=== PATIENT | female | born 1995 | race African-American/Black ===

== ENCOUNTER 2019-10-23 22:28 | Observation (INO) ==
[2019-10-24] MEDS ORDERED: PROMETHAZINE INJ 25 MG in SODIUM CHLORIDE 0.9% 50 ML IV STA (00:16)
[2019-10-24] MEDS ORDERED: KETOROLAC 30 MG/1 ML VIAL IV STA (00:16)
[2019-10-24] MEDS ORDERED: PROMETHAZINE 25 MG/1 ML VIAL ONE (00:40)
[2019-10-24 00:44] LABS: Basophils % 0.5 % (0.0-0.8); Eosinophils # 0.1 10*3/uL (0.0-0.87); Eosinophils % 1.2 % (0.00-10.9); Hematocrit 39.6 VOL% (35.7-47.0); Hemoglobin 12.3 GM/DL (12.0-16.0); Immature Granulocytes % 0.6 %; Immature Granulocytes Absolute 0.05 #; Lymphocytes # 3.2 10*3/uL (1.4-4.0); Lymphocytes % 37.9 % (21.3-54.2); Mean Corpuscular HGB Conc 31.1 GM/DL (32-36); Mean Corpuscular Volume 93.4 FL (87-102); Mean Platelet Volume 11.8 FL (9.6-12.0); Monocytes % 10.9 % (1.7-12.7); Neutrophils % 48.9 % (38.7-73.9); Platelet Count 256 T/CUMM (130-400); Red Blood Count 4.24 MC/CUMM (3.8-5.5); Red Cell Distribution Width 12.3 % (9.3-17.3); White Blood Count 8.5 T/CUMM (4-12)
[2019-10-24] MEDS ORDERED: PROMETHAZINE 25 MG/1 ML VIAL IM STA (00:45)
[2019-10-24 01:32] LABS: Calcium 9.3 MG/DL (8.5-10.1); Osmolality,Calculated 272.8 MOS/KG (273-304)
[2019-10-24] MEDS ORDERED: PROMETHAZINE 25 MG/1 ML VIAL IM PRN (03:17)
[2019-10-24] MEDS ORDERED: ONDANSETRON 4 MG/2 ML VIAL IV PRN (03:17)
[2019-10-24] MEDS ORDERED: ACETAMINOPHEN 325 MG TABLET PO PRN (03:17)
[2019-10-24] MEDS ORDERED: HYDROmorphone 2 MG/1 ML VIAL IV PRN (03:45)
[2019-10-24] MEDS ORDERED: diphenhydrAMINE 50 MG/1 ML VIAL IV PRN (04:22)
[2019-10-24] MEDS: KETOROLAC 30 MG/1 ML VIAL IV PRN ×3 (08:23→21:09)
[2019-10-24] MEDS ORDERED: ALPRAZolam 0.5 MG TABLET PO PRN (15:19)
[2019-10-24] MEDS: acetaZOLAMIDE 250 MG TABLET PO SCH (17:21)
[2019-10-24] MEDS: TOPIRAMATE 100 MG TABLET PO SCH (21:05)
[2019-10-24] MEDS: tiZANidine 4 MG TABLET PO PRN (21:23)
[2019-10-25 05:24] LABS: Basophils % 0.5 % (0.0-0.8); Eosinophils # 0.2 10*3/uL (0.0-0.87); Eosinophils % 2.1 % (0.00-10.9); Hematocrit 38.9 VOL% (35.7-47.0); Hemoglobin 11.8 GM/DL (12.0-16.0); Immature Granulocytes % 0.8 %; Immature Granulocytes Absolute 0.06 #; Lymphocytes % 41.5 % (21.3-54.2); Mean Corpuscular HGB Conc 30.3 GM/DL (32-36); Mean Corpuscular Volume 93.7 FL (87-102); Mean Platelet Volume 12.4 FL (9.6-12.0); Neutrophils % 43.1 % (38.7-73.9); Platelet Count 227 T/CUMM (130-400); Red Blood Count 4.15 MC/CUMM (3.8-5.5); Red Cell Distribution Width 12.3 % (9.3-17.3); White Blood Count 7.3 T/CUMM (4-12)
[2019-10-25 05:39] LABS: Calcium 8.4 MG/DL (8.5-10.1); Osmolality,Calculated 280.4 MOS/KG (273-304)
[2019-10-25 08:52] LABS: INR 0.9; PT Patient Result 9.9 SECS (9.6-12.2)
[2019-10-25] MEDS: VENLAFAXINE XR 37.5 MG CAPSULE PO SCH (09:28)
[2019-10-25] MEDS: TOPIRAMATE 100 MG TABLET PO SCH ×2 (09:28→20:38)
[2019-10-25] MEDS: acetaZOLAMIDE 250 MG TABLET PO SCH ×3 (09:28→17:41)
[2019-10-25] MEDS: Dextroamphetamine-Amphetamine [Adderall] 20 MG PO SCH (09:29)
[2019-10-25] MEDS: KETOROLAC 30 MG/1 ML VIAL IV PRN ×2 (10:53→17:56)
[2019-10-25 12:34] LABS: Lymphocytes,CSF 65 %; Monocytes,CSF 31 %; Neutrophils,CSF 4 %
[2019-10-25 12:35] LABS: Appearance,CSF Clear; Red Blood Cell,CSF < 1 C/CUMM; White Blood Cell,CSF 24 C/CUMM
[2019-10-25 13:44] LABS: Glucose,CSF 57 MG/DL (40-70)
[2019-10-25] MEDS: tiZANidine 4 MG TABLET PO PRN (13:47)
[2019-10-26] MEDS: KETOROLAC 30 MG/1 ML VIAL IV PRN (02:32)
[2019-10-26] MEDS: tiZANidine 4 MG TABLET PO PRN (02:35)
[2019-10-26 05:53] LABS: Basophils # 0.1 10*3/uL (0.0-0.2); Basophils % 0.8 % (0.0-0.8); Eosinophils # 0.1 10*3/uL (0.0-0.87); Eosinophils % 2.1 % (0.00-10.9); Hematocrit 37.9 VOL% (35.7-47.0); Hemoglobin 11.4 GM/DL (12.0-16.0); Immature Granulocytes % 0.6 %; Immature Granulocytes Absolute 0.04 #; Lymphocytes # 2.2 10*3/uL (1.4-4.0); Lymphocytes % 32.9 % (21.3-54.2); Mean Corpuscular HGB Conc 30.1 GM/DL (32-36); Mean Platelet Volume 12.2 FL (9.6-12.0); Neutrophils % 53.6 % (38.7-73.9); Platelet Count 219 T/CUMM (130-400); Red Blood Count 4.03 MC/CUMM (3.8-5.5); Red Cell Distribution Width 12.1 % (9.3-17.3); White Blood Count 6.6 T/CUMM (4-12)
[2019-10-26 06:16] LABS: Calcium 8.5 MG/DL (8.5-10.1); Osmolality,Calculated 279.5 MOS/KG (273-304)
[2019-10-26] MEDS: acetaZOLAMIDE 250 MG TABLET PO SCH ×2 (09:22→13:28)
[2019-10-26] MEDS: VENLAFAXINE XR 37.5 MG CAPSULE PO SCH (09:22)
[2019-10-26] MEDS: TOPIRAMATE 100 MG TABLET PO SCH (09:23)
[2019-10-26] MEDS: Dextroamphetamine-Amphetamine [Adderall] 20 MG PO SCH (10:31)
[2019-10-26 12:08] VITALS: BP 103/53
[2019-11-01] MEDS ORDERED: ERGOCALCIFEROL 50,000 UNIT CAPSULE PO SCH (15:30)
== END 2019-10-26 14:16 | disposition home or self-care (01) ==
LOC: N.EDINP 22:28 → N.ED 22:28 → N.EDINP 10-24 04:08 → N.4E 10-24 05:09
PROVIDERS: ADMIT Internal Medicine; ATTEND Internal Medicine

== ENCOUNTER 2020-05-21 18:14 | Inpatient (IN) ==
[2020-05-21] MEDS ORDERED: HYDROmorphone 2 MG/1 ML VIAL IV STA (19:17)
[2020-05-21] MEDS ORDERED: PROMETHAZINE 25 MG/1 ML VIAL IM STA (19:17)
[2020-05-21] MEDS ORDERED: SODIUM CHLORIDE 0.9% 500 ML IV ONE (19:17)
[2020-05-21] MEDS ORDERED: acetaZOLAMIDE 250 MG TABLET PO STA (19:41)
[2020-05-21 20:15] LABS: Basophils % 0.3 % (0.0-0.8); Eosinophils # 0.1 10*3/uL (0.0-0.87); Eosinophils % 1.6 % (0.00-10.9); Hematocrit 38.7 VOL% (35.7-47.0); Hemoglobin 11.8 GM/DL (12.0-16.0); Immature Granulocytes % 0.3 %; Immature Granulocytes Absolute 0.02 #; Lymphocytes # 1.9 10*3/uL (1.4-4.0); Lymphocytes % 27.5 % (21.3-54.2); Mean Corpuscular HGB Conc 30.5 GM/DL (32-36); Mean Platelet Volume 11.6 FL (9.6-12.0); Monocytes % 9.7 % (1.7-12.7); Neutrophils % 60.6 % (38.7-73.9); Platelet Count 237 T/CUMM (130-400); Red Blood Count 4.16 MC/CUMM (3.8-5.5); Red Cell Distribution Width 12.5 % (9.3-17.3); White Blood Count 6.7 T/CUMM (4-12)
[2020-05-21 20:25] LABS: PT Patient Result 10.9 SECS (9.8-11.9)
[2020-05-21 20:35] LABS: Albumin 3.7 G/DL (3.4-5.0); Bilirubin,Total 1.4 MG/DL (0.2-1.0); Calcium 8.8 MG/DL (8.5-10.1); Osmolality,Calculated 274.5 MOS/KG (273-304)
[2020-05-21 20:43] LABS: Apearance,Urine CLOUDY (Clear); Bilirubin,Urine Negative (Negative); Blood, Urine Negative (Negative); Glucose,Urine (UA) Negative (Negative); Hyaline Casts,Urine 4 /LPF (0-3); Ketones,Urine Negative (Negative); Mucus,Urine Occasional /LPF (Occasional); Nitrite,Urine Negative (Negative); Protein,Urine Negative; RBC,Urine 1 /HPF (0-4); Squamous Epithelial Cell,Urine Many /HPF (0-10); Urine Color Yellow (Yellow); Urine Specific Gravity 1.016 (1.001-1.035); WBC,Urine 1 /HPF (0-6)
[2020-05-21 20:45] LABS: Barbiturates Screen,Urine Negative (Negative); Benzodiazepines Screen,Urine Positive (Negative); Cannabinoid Screen,Urine Negative (Negative); Opiate Screen,Urine Negative (Negative); Phencyclidine Screen,Urine Negative (Negative)
[2020-05-21 21:31] LABS: Sedimentation Rate-Westergren 25 MM/HR (0-20)
[2020-05-21] MEDS ORDERED: BUTALBITAL/ACETAMIN/CAFFEINE 50-325-40 MG TABLET PO PRN (22:18)
[2020-05-21] MEDS ORDERED: RIZATRIPTAN ODT 5 MG TABLET PO PRN (22:18)
[2020-05-21] MEDS ORDERED: DOCUSATE SODIUM 100 MG CAPSULE PO PRN (22:20)
[2020-05-21] MEDS ORDERED: ACETAMINOPHEN 325 MG TABLET PO PRN (22:20)
[2020-05-22] MEDS: cefTRIAXone 1,000 MG in SODIUM CHLORIDE 0.9% 100 ML IV SCH ×2 (02:40→22:12)
[2020-05-22] MEDS: KETOROLAC 15 MG/1 ML VIAL IV PRN ×3 (05:24→22:12)
[2020-05-22 09:00] LABS: Basophils % 0.3 % (0.0-0.8); Eosinophils # 0.2 10*3/uL (0.0-0.87); Eosinophils % 2.3 % (0.00-10.9); Hematocrit 41.5 VOL% (35.7-47.0); Hemoglobin 12.7 GM/DL (12.0-16.0); Immature Granulocytes % 0.2 %; Immature Granulocytes Absolute 0.01 #; Lymphocytes # 2.3 10*3/uL (1.4-4.0); Mean Corpuscular HGB Conc 30.6 GM/DL (32-36); Mean Corpuscular Volume 94.1 FL (87-102); Mean Platelet Volume 11.5 FL (9.6-12.0); Monocytes % 4.7 % (1.7-12.7); Neutrophils % 58.5 % (38.7-73.9); Platelet Count 226 T/CUMM (130-400); Red Blood Count 4.41 MC/CUMM (3.8-5.5); Red Cell Distribution Width 12.4 % (9.3-17.3); White Blood Count 6.7 T/CUMM (4-12)
[2020-05-22] MEDS ORDERED: BUTALBITAL/ACETAMIN/CAFFEINE 50-325-40 MG TABLET ONE (09:02)
[2020-05-22 09:25] LABS: Calcium 9.4 MG/DL (8.5-10.1); Osmolality,Calculated 276.4 MOS/KG (273-304)
[2020-05-22] MEDS ORDERED: PHENAZOPYRIDINE 95 MG TABLET PO PRN (13:06)
[2020-05-22] MEDS: ONDANSETRON 4 MG/2 ML VIAL IV PRN (15:16)
[2020-05-23] MEDS ORDERED: TOPIRAMATE 200 MG TABLET PO SCH (09:05)
[2020-05-23] MEDS: TOPIRAMATE 100 MG TABLET PO SCH ×2 (09:39→18:08)
[2020-05-23] MEDS: CYCLOBENZAPRINE 10 MG TABLET PO PRN (09:41)
[2020-05-23] MEDS: ONDANSETRON 4 MG/2 ML VIAL IV PRN (14:49)
[2020-05-23] MEDS: KETOROLAC 15 MG/1 ML VIAL IV PRN (21:39)
[2020-05-23] MEDS: cefTRIAXone 1,000 MG in SODIUM CHLORIDE 0.9% 100 ML IV SCH (21:40)
[2020-05-24] MEDS: KETOROLAC 15 MG/1 ML VIAL IV PRN ×3 (03:37→20:52)
[2020-05-24] MEDS: ONDANSETRON 4 MG/2 ML VIAL IV PRN ×3 (03:38→20:53)
[2020-05-24] MEDS: TOPIRAMATE 100 MG TABLET PO SCH ×2 (13:35→16:09)
[2020-05-24] MEDS: PROMETHAZINE 25 MG/1 ML VIAL IM PRN (16:10)
[2020-05-24] MEDS: cefTRIAXone 1,000 MG in SODIUM CHLORIDE 0.9% 100 ML IV SCH (21:48)
[2020-05-25] MEDS: PROMETHAZINE 25 MG/1 ML VIAL IM PRN (04:16)
[2020-05-25] MEDS: KETOROLAC 15 MG/1 ML VIAL IV PRN ×3 (04:17→22:09)
[2020-05-25] MEDS: TOPIRAMATE 100 MG TABLET PO SCH ×2 (08:17→19:12)
[2020-05-25] MEDS ORDERED: FLUCONAZOLE 150 MG TABLET PO ONE (09:51)
[2020-05-25 11:41] LABS: Basophils % 0.5 % (0.0-0.8); Eosinophils # 0.1 10*3/uL (0.0-0.87); Eosinophils % 2.4 % (0.00-10.9); Hematocrit 35.2 VOL% (35.7-47.0); Hemoglobin 11.2 GM/DL (12.0-16.0); Immature Granulocytes % 0.5 %; Immature Granulocytes Absolute 0.03 #; Lymphocytes # 2.2 10*3/uL (1.4-4.0); Lymphocytes % 37.7 % (21.3-54.2); Mean Corpuscular HGB Conc 31.8 GM/DL (32-36); Mean Corpuscular Volume 90.5 FL (87-102); Mean Platelet Volume 12.5 FL (9.6-12.0); Monocytes % 10.6 % (1.7-12.7); Neutrophils % 48.3 % (38.7-73.9); Platelet Count 222 T/CUMM (130-400); Red Blood Count 3.89 MC/CUMM (3.8-5.5); Red Cell Distribution Width 12.3 % (9.3-17.3); White Blood Count 5.8 T/CUMM (4-12)
[2020-05-25 12:44] LABS: Calcium 8.7 MG/DL (8.5-10.1); Osmolality,Calculated 280.5 MOS/KG (273-304)
[2020-05-25] MEDS: cefTRIAXone 1,000 MG in SODIUM CHLORIDE 0.9% 100 ML IV SCH (22:13)
[2020-05-26] MEDS: ONDANSETRON 4 MG/2 ML VIAL IV PRN (02:40)
[2020-05-26] MEDS: PROMETHAZINE 25 MG/1 ML VIAL IM PRN (03:58)
[2020-05-26] MEDS: TOPIRAMATE 100 MG TABLET PO SCH ×2 (09:22→17:42)
[2020-05-26] MEDS: KETOROLAC 15 MG/1 ML VIAL IV PRN ×3 (09:27→21:59)
[2020-05-26] MEDS: cefTRIAXone 1,000 MG in SODIUM CHLORIDE 0.9% 100 ML IV SCH (22:03)
[2020-05-27] MEDS: ONDANSETRON 4 MG/2 ML VIAL IV PRN ×2 (02:44→18:19)
[2020-05-27] MEDS: CYCLOBENZAPRINE 10 MG TABLET PO PRN ×2 (02:44→22:06)
[2020-05-27] MEDS: TOPIRAMATE 100 MG TABLET PO SCH ×2 (09:30→18:03)
[2020-05-27] MEDS: KETOROLAC 15 MG/1 ML VIAL IV PRN ×2 (09:34→18:12)
[2020-05-27] MEDS ORDERED: POTASSIUM CHLORIDE 20 MEQ TABLET PO ONE (12:47)
[2020-05-27] MEDS: DOCUSATE SODIUM 100 MG CAPSULE PO SCH ×2 (15:33→21:38)
[2020-05-27] MEDS: POLYETHYLENE GLYCOL POWDER 17 GM PACK PO SCH ×2 (15:39→21:38)
[2020-05-27] MEDS: cefTRIAXone 1,000 MG in SODIUM CHLORIDE 0.9% 100 ML IV SCH (22:06)
[2020-05-28] MEDS: KETOROLAC 15 MG/1 ML VIAL IV PRN (08:00)
[2020-05-28] MEDS: DOCUSATE SODIUM 100 MG CAPSULE PO SCH (08:01)
[2020-05-28] MEDS: POLYETHYLENE GLYCOL POWDER 17 GM PACK PO SCH (08:01)
[2020-05-28] MEDS: TOPIRAMATE 100 MG TABLET PO SCH (08:43)
[2020-05-28] MEDS ORDERED: KETOROLAC 10 MG TABLET PO PRN (11:15)
[2020-05-28] MEDS ORDERED: PROMETHAZINE 25 MG TABLET PO PRN (11:16)
[2020-05-28] MEDS ORDERED: SENNA 8.6 MG TABLET PO PRN (11:18)
[2020-05-28] MEDS ORDERED: LACTULOSE 20 GM/30 ML UDCUP PO PRN (11:18)
[2020-05-28 11:57] VITALS: BP 106/55
== END 2020-05-28 13:22 | disposition home or self-care (01) | DRG 103 ==
LOC: N.ED 18:14 → N.EDINP 18:14 → N.TELES 05-22 14:19 → SUATTDRO 05-24 16:16
PROVIDERS: ADMIT Family Medicine; ATTEND Hospitalist

== ENCOUNTER 2021-10-18 07:57 | Inpatient (IN) ==
[2021-10-18] MEDS ORDERED: MEPERIDINE 50 MG/1 ML VIAL IV PRN (08:59)
[2021-10-18] MEDS ORDERED: ONDANSETRON 4 MG/2 ML VIAL IV PRN (08:59)
[2021-10-18] MEDS ORDERED: BUTORPHANOL 2 MG/ML VIAL IV PRN (08:59)
[2021-10-18] MEDS ORDERED: AMPICILLIN INJ 2,000 MG in SODIUM CHLORIDE 0.9% 100 ML IV ONE (09:02)
[2021-10-18 09:25] LABS: Basophils % 0.1 % (0.0-0.8); Eosinophils % 0.3 % (0.00-10.9); Hematocrit 32.1 VOL% (35.7-47.0); Hemoglobin 10.2 GM/DL (12.0-16.0); Immature Granulocytes % 0.5 %; Immature Granulocytes Absolute 0.08 #; Lymphocytes # 1.6 10*3/uL (1.4-4.0); Lymphocytes % 10.5 % (21.3-54.2); Mean Corpuscular HGB Conc 31.8 GM/DL (32-36); Mean Corpuscular Volume 85.1 FL (87-102); Mean Platelet Volume 11.4 FL (9.6-12.0); Monocytes % 8.6 % (1.7-12.7); Platelet Count 258 T/CUMM (130-400); Red Blood Count 3.77 MC/CUMM (3.8-5.5); White Blood Count 15.1 T/CUMM (4-12)
[2021-10-18] MEDS: LACTATED RINGERS 1,000 ML IV SCH ×2 (09:34→19:23)
[2021-10-18] MEDS ORDERED: ePHEDrine 50 MG/ML VIAL IV PRN (12:41)
[2021-10-18] MEDS ORDERED: LACTATED RINGERS 1,000 ML IV ONE (12:41)
[2021-10-18] MEDS ORDERED: CITRIC ACID/SODIUM CITRATE 30 ML UDCUP PO ONE (12:41)
[2021-10-18] MEDS ORDERED: FAMOTIDINE 20 MG/2 ML VIAL IV ONE (12:41)
[2021-10-18] MEDS ORDERED: hydrOXYzine HCL 25 MG/1 ML VIAL IM PRN (12:42)
[2021-10-18] MEDS ORDERED: PROMETHAZINE 25 MG/1 ML VIAL IM ONE (12:42)
[2021-10-18] MEDS ORDERED: NALOXONE 0.4 MG/ML VIAL IV PRN (12:42)
[2021-10-18] MEDS ORDERED: diphenhydrAMINE 50 MG/1 ML VIAL IV PRN ×2 (12:42)
[2021-10-18] MEDS ORDERED: LACTATED RINGERS 1,000 ML IV SCH (13:00)
[2021-10-18] MEDS: fentaNYL 2 MCG/ROPIV 0.2% EPID 100 ML EPIDURAL SCH ×2 (13:54→21:04)
[2021-10-18] MEDS: OXYTOCIN/LR 20 UNIT/1,000 ML BAG IV SCH (13:56)
[2021-10-18] MEDS: AMPICILLIN INJ 1,000 MG in SODIUM CHLORIDE 0.9% 100 ML IV SCH ×3 (14:24→22:00)
[2021-10-18 15:44] LABS: Bilirubin,Urine Negative (Negative); Blood, Urine Negative (Negative); Glucose,Urine (UA) Negative (Negative); Ketones,Urine 20 mg/dL (Negative); Mucus,Urine Occasional /LPF (Occasional); Nitrite,Urine Negative (Negative); Protein,Urine Negative; Squamous Epithelial Cell,Urine Occasional /HPF (0-10); Urine Appearance CLEAR (Clear); Urine Color Yellow (Yellow); Urine Specific Gravity 1.014 (1.001-1.035); Urine Urobilinogen < 2.0 EU/DL (<2.0)
[2021-10-18] MEDS ORDERED: ACETAMINOPHEN 500 MG TABLET PO ONE (22:36)
[2021-10-19] MEDS ORDERED: TRANEXAMIC ACID 1,000 MG/10 ML VIAL ONE (01:52)
[2021-10-19] MEDS ORDERED: miSOPROStoL 200 MCG TABLET ONE (01:52)
[2021-10-19] MEDS ORDERED: METHYLERGONOVINE 0.2 MG/1 ML AMP ONE (01:53)
[2021-10-19] MEDS ORDERED: SODIUM CHLORIDE 0.9% 0 ML IV ONE (01:53)
[2021-10-19] MEDS ORDERED: CARBOPROST TROMETHAMINE 250 MCG/ML AMP IM ONE (01:53)
[2021-10-19] MEDS ORDERED: OXYTOCIN/LR 20 UNIT/1,000 ML BAG IV ONE ×2 (01:53→04:31)
[2021-10-19] MEDS: AMPICILLIN INJ 1,000 MG in SODIUM CHLORIDE 0.9% 100 ML IV SCH (02:06)
[2021-10-19] MEDS ORDERED: miSOPROStoL 200 MCG TABLET RECTAL ONE (03:50)
[2021-10-19 04:09] LABS: Cord Venous Blood HCO3 20.4 MMOL/L; Cord Venous Blood PO2 25.3 MMHG
[2021-10-19] MEDS: OXYTOCIN/LR 20 UNIT/1,000 ML BAG IV SCH (04:18)
[2021-10-19] MEDS ORDERED: BENZOCAINE 20%/MENTHOL 0.5% SPRAY 56 GM CAN TOP PRN (04:31)
[2021-10-19] MEDS ORDERED: DIPH/TET/ACEL PERT BOOSTER VACCINE 0.5 ML VIAL IM ONE (04:31)
[2021-10-19] MEDS ORDERED: ONDANSETRON 4 MG/2 ML VIAL IV PRN (04:31)
[2021-10-19] MEDS ORDERED: WITCH HAZEL PADS 100/JAR TOP PRN (04:31)
[2021-10-19] MEDS ORDERED: oxyCODONE/ACETAMINOPHEN 5-325 MG TABLET PO PRN (04:31)
[2021-10-19] MEDS ORDERED: MEASLES/MUMPS/RUBELLA VACCINE 0.5 ML VIAL SUBCUT ONE (04:31)
[2021-10-19] MEDS ORDERED: RHO(D) IMMUNE GLOBULIN 300 MCG SYRINGE IM ONE (04:31)
[2021-10-19] MEDS ORDERED: LANOLIN 50% CREAM 0.3 OZ TUBE TOP PRN (04:31)
[2021-10-19] MEDS ORDERED: BISACODYL 10 MG SUPP RECTAL PRN (04:31)
[2021-10-19] MEDS ORDERED: HYDROCORTISONE 2.5% RECTAL CREAM 30 GM TUBE TOP PRN (04:31)
[2021-10-19] MEDS ORDERED: ACETAMINOPHEN 325 MG TABLET PO PRN (04:31)
[2021-10-19] MEDS: IBUPROFEN 800 MG TABLET PO PRN ×2 (05:27→14:43)
[2021-10-19] MEDS: oxyCODONE/ACETAMINOPHEN 5-325 MG TABLET PO PRN (16:47)
[2021-10-19] MEDS: DOCUSATE SODIUM 100 MG CAPSULE PO SCH (20:43)
[2021-10-20] MEDS: oxyCODONE/ACETAMINOPHEN 5-325 MG TABLET PO PRN ×2 (01:49→09:53)
[2021-10-20 05:09] LABS: Basophils % 0.2 % (0.0-0.8); Eosinophils # 0.3 10*3/uL (0.0-0.87); Eosinophils % 2.1 % (0.00-10.9); Hematocrit 27.1 VOL% (35.7-47.0); Hemoglobin 8.3 GM/DL (12.0-16.0); Immature Granulocytes % 0.6 %; Immature Granulocytes Absolute 0.08 #; Lymphocytes # 2.5 10*3/uL (1.4-4.0); Mean Corpuscular HGB Conc 30.6 GM/DL (32-36); Mean Corpuscular Volume 86.9 FL (87-102); Mean Platelet Volume 12.3 FL (9.6-12.0); Monocytes % 8.4 % (1.7-12.7); Neutrophils % 69.7 % (38.7-73.9); Platelet Count 254 T/CUMM (130-400); Red Blood Count 3.12 MC/CUMM (3.8-5.5); Red Cell Distribution Width 14.4 % (9.3-17.3)
[2021-10-20] MEDS: IRON (CARBONYL)/VIT C/B12/FA TABLET PO SCH ×2 (07:52→09:44)
[2021-10-20] MEDS: DOCUSATE SODIUM 100 MG CAPSULE PO SCH ×3 (07:53→21:51)
[2021-10-20] MEDS: IBUPROFEN 800 MG TABLET PO PRN ×2 (07:53→17:00)
[2021-10-20] MEDS ORDERED: ACETAMINOPHEN/CODEINE 300-30 MG TABLET PO PRN ×2 (08:32)
[2021-10-20] MEDS ORDERED: INFLUENZA VIRUS VACCINE 0.5 ML SYRINGE IM ONE (09:15)
[2021-10-20] MEDS: ENOXAPARIN 40 MG/0.4 ML SYRINGE SUBCUT SCH (09:54)
[2021-10-21] MEDS: IBUPROFEN 800 MG TABLET PO PRN ×2 (03:12→08:16)
[2021-10-21] MEDS: ENOXAPARIN 40 MG/0.4 ML SYRINGE SUBCUT SCH (08:14)
[2021-10-21] MEDS: DOCUSATE SODIUM 100 MG CAPSULE PO SCH (08:14)
[2021-10-21] MEDS: IRON (CARBONYL)/VIT C/B12/FA TABLET PO SCH (08:14)
[2021-10-21] MEDS: oxyCODONE/ACETAMINOPHEN 5-325 MG TABLET PO PRN (08:17)
[2021-10-21] MEDS ORDERED: INFLUENZA VIRUS VACCINE 0.5 ML SYRINGE IM ONE (08:49)
[2021-10-21 10:39] VITALS: BP 116/58
== END 2021-10-21 12:20 | disposition home or self-care (01) | DRG 560 ==
LOC: N.LDOUT 07:57 → N.LD 07:57 → N.OB 10-19 10:35
PROVIDERS: ADMIT Obstetrics & Gynecology; ATTEND Advanced Practice Midwife